=== PATIENT | male | born 1940 | race Caucasian/White ===

== ENCOUNTER → 2017-08-26 | Day surgery (SDC) | payer MEDICARE, BC ==
[~2017-08-26] MED LIST: ASPIR 8181 MG PO; CARAFATE 1 GM TA1 G1 PO; FLOMAX0.4 MG PO; HYDROCODONE-AP1 EAC6 PO; OLANZAPINE20 MG PO; PREVACID30 MG PO
[2017-08-26 10:38] LABS: HEMATOCRIT 35.5 % (42.0-52.0); HEMOGLOBIN 11.6 gm/dL (14.0-18.0); MCH 31.8 pg (26.0-34.0); MCHC 32.8 g/dL (28.0-37.0); MCV 97.1 fL (80.0-100.0); MPV 7.4 fl. (7.2-11.1); RBC 3.66 mil/uL (4.50-6.00); RDW-CV 15.4 % (10.5-14.5); WBC 6.9 thou/uL (4.0-11.0)
[2017-08-26 10:46] LABS: CALCIUM 8.9 mg/dL (8.5-10.1); CREATININE 3.2 mg/dL (0.6-1.3); POTASSIUM 4.4 mmol/L (3.5-5.1)
[2017-08-26 10:51] LABS: TOTAL BILIRUBIN 0.4 mg/dL (<0.1-1.0); TOTAL PROTEIN 7.3 g/dL (6.4-8.2)
--- NOTE | 2017-08-26 11:32 | EKG ---
[place] [address] ELECTROCARDIOGRAM REPORT Name: LISBETH TAYLOR Room: [facility].#: [id number] Admission: 08/26/17 Attend Phys: Adrián Alarcon Discharge: Date of : 36 Report #: [id number] THIS REPORT FOR: //name// [facility] Test Date: 2017-08-26 Test Time: 10:35:35 Pat Name: LISBETH TAYLOR Department: Room: Gender: M Typesetting Machine Tender: : 1940 Requested By: Tomy Hahn Order Number: [id number] [place] MD: Jax Farrell Measurements Intervals [place] Rate: 64 P: 57 RI: 154 QRS: -18 QRSD: 84 T: 50 QT: 430 QTc: 444 Interpretive Statements Sinus rhythm Borderline left axis deviation Borderline low voltage, extremity leads No previous ECG available for comparison Electronically Signed On 08-26-2017 11:32:32 COMMERCIAL MAKEUP ARTIST by Jax Farrell [email or web address] <ELECTRONICALLY SIGNED> By: Jax Farrell MD, [facility] 08/26/17 1132 1035 1035 Jax Farrell MD, FACC /EPI
[2017-08-27 08:09] LABS: HBsAG-EMPLOYEE EXPOSURE Negative (Negative)
--- NOTE | 2017-09-09 14:35 | OP ---
[address] [address] OPERATIVE REPORT Name: LISBETH TAYLOR Room: [facility]#: [id number] Admission: 08/26/17 Attend Phys: Adrián Alarcon Discharge: Date of : 36 Report #: [id number] THIS REPORT FOR: //name// CC: [facility]oyerFormerly [facility] DATE OF SERVICE: 08/26/2017 PREOPERATIVE DIAGNOSIS: End-stage renal disease, requiring hemodialysis. POSTOPERATIVE DIAGNOSIS: End-stage renal disease, requiring hemodialysis. SURGEON: Benton King DO. STRAW HAT PRESSER: None. PROCEDURE: Right upper extremity AV graft placement with a 4-7 mm Acuseal graft. ANESTHESIA: Moderate anesthesia care. ESTIMATED BLOOD LOSS: Minimal. SPECIMEN: None. COMPLICATIONS: None. CONDITION: Stable. DISPOSITION: Home. INDICATIONS FOR THE PROCEDURE AND CONSENT: The patient is a 77-year-old male who has developed end-stage renal disease. He underwent tunneled dialysis catheter placement for hemodialysis. He was noted to have poor nutrition and discussion with his senior tax specialist at that time was to not place a long-term access. The patient has since improved his nutrition and gained some weight and plan is changed to long-term hemodialysis. Again, because of his nutritional status and overall health, an AV graft was requested by the senior tax specialist, a posterior AV fistula. Risks and benefits of this were discussed with the patient including infection, bleeding, need for additional procedures. Additionally, the patient's tunneled dialysis catheter in the last week was reported to be poorly functioning; however, the patient reports that it has been dialyzing well this week [place] [address] OPERATIVE REPORT Name: LISBETH TAYLOR Room: [facility].#: [id number] Admission: 08/26/17 Attend Phys: Adrián Alarcon Discharge: Date of : 36 Report #: [id number] PROCEDURE IN DETAIL: After timeout was performed, the patient was placed in supine position with circumferential sterile prep and drape of the right upper extremity. A longitudinal incision was made overlying the brachial artery and dissection carried down sharply with Bovie electrocautery. Brachial artery was identified and encircled proximally and distally with vessel loops. The axillary vein was then identified in a similar manner by making longitudinal incision high in the arm. Dissection carried down using Bovie electrocautery and Metzenbaum scissors. A large vein was encountered and noted to be adequate outflow for graft and proximal and distal control with vessel loops was performed. There was a large branch that was also controlled with vessel loop. The 4-7 mm tapered Acuseal graft was then selected and soaked with antibiotic saline and then using a curved tunneler, the graft was tunneled between the 2 incisions laterally on the arm. The 4 mm end was then used as an end-to-side anastomosis at the brachial artery. The patient was systemically heparinized with 4000 units of heparin. Brachial artery was then clamped proximally and distally and a longitudinal arteriotomy made with 11 blade scalpel and Marroquin scissors. The graft was then fashioned as a dwyer with approximately 5-6 mm arteriotomy. The 5-0 Prolene was then used to create the end-to-side anastomosis. The clamp was then applied to the very proximal graft and blood flow was restored to the hand. The anastomosis was noted to be hemostatic, except for . A gauze was applied to this area. Attention was turned to the outflow venous anastomosis. The vein was then clamped proximally and distally and the large branch controlled with the vessel loop and longitudinal venotomy was made with 11 blade and Marroquin scissors. The graft was then transected to length and sutured in place in an end-to-side fashion with 5-0 Prolene sutures. A clamp was applied to the graft and blood flow restored to this point of the graft. Blood flow was allowed to backbleed and forward bleed through the vein to fill the venous system and to avoid any air. The graft was then opened and blood flow was restored. This demonstrated excellent thrill and flow through the graft. The radial artery demonstrated a palpable pulse and augmented only slightly with the graft compression. Both wounds were then copiously irrigated with antibiotic saline and both anastomoses noted to be hemostatic; 50 units of protamine was given to reverse heparin that had been given only 28 minutes previously. Both incisions were then closed with 3-0 Vicryl and 4-0 Monocryl suture and Dermabond dressing was applied. The patient tolerated the procedure well. Lap, needle and instrument counts correct. <ELECTRONICALLY SIGNED> By: Benton King DO 09/09/17 1435 1345 1422Benton King DO /nt
== END | disposition home or self-care (01) ==
LOC: M.SUR 10:05
PROVIDERS: Anesthesiology; Surgery
DX: N18.6 End stage renal disease (principal); Z79.2 Long term (current) use of antibiotics

== ENCOUNTER → 2017-10-23 | Day surgery (SDC) | payer MEDICARE, BC ==
[2017-10-23 10:23] LABS: HEMATOCRIT 37.9 % (42.0-52.0); HEMOGLOBIN 12.4 gm/dL (14.0-18.0); MCH 28.3 pg (26.0-34.0); MCHC 32.6 g/dL (28.0-37.0); MCV 86.8 fL (80.0-100.0); MPV 7.4 fl. (7.2-11.1); RBC 4.37 mil/uL (4.50-6.00); RDW-CV 15.4 % (10.5-14.5); WBC 13.9 thou/uL (4.0-11.0)
[2017-10-23 10:31] LABS: CALCIUM 8.3 mg/dL (8.5-10.1); CREATININE 2.1 mg/dL (0.6-1.3)
[2017-10-23 10:41] LABS: ALBUMIN 2.2 g/dL (3.4-5.0); TOTAL BILIRUBIN 0.7 mg/dL (<0.1-1.0); TOTAL PROTEIN 6.8 g/dL (6.4-8.2)
--- NOTE | 2017-10-31 14:18 | OP ---
[address] [address] OPERATIVE REPORT Name: LISBETH TAYLOR Room: [facility]#: [id number] Admission: 10/23/17 Attend Phys: Adrián Alarcon Discharge: Date of : 36 Report #: [id number] THIS REPORT FOR: //name// CC: Mario King DATE OF SERVICE: 10/23/2017 PREOPERATIVE DIAGNOSIS: End-stage renal disease, requiring hemodialysis. POSTOPERATIVE DIAGNOSIS: End-stage renal disease, requiring hemodialysis. SURGEON: Benton King DO COMPOSER TEACHING ARTIST: None. PROCEDURE: Left upper extremity brachiobasilic AV fistula creation. ESTIMATED BLOOD LOSS: Minimal. SPECIMEN: None. COMPLICATIONS: None. CONDITION: Stable. DISPOSITION: Home. INDICATIONS FOR THE PROCEDURE AND CONSENT: The patient is a 77-year-old male with end-stage renal disease requiring hemodialysis. An AV graft was requested by his button clamper due to his overall medical health and did not feel the fistula should be the first choice initially. He underwent a right upper extremity AV graft, which thrombosed and failed. He underwent multiple thrombectomies and revision. This ultimately failed. This was thought most likely to be related to a tunneled dialysis catheter as being partially obstructive of the outflow on the right side as well as having some lability of blood pressure. Recommendation for left upper extremity AV fistula, possible graft was made. Risks and benefits were discussed with the patient including infection, bleeding, need for additional procedures including immobilization, transposition and AV graft revision. The patient wished to proceed, was consented and scheduled. PROCEDURE IN DETAIL: After timeout was performed, the patient was placed in supine position with circumferential sterile prep and drape of left upper extremity. Ultrasound was performed, which demonstrated the brachial artery well. The cephalic vein was not visualized. [place] [address] OPERATIVE REPORT Name: LISBETH TAYLOR Room: [facility]#: [id number] Admission: 10/23/17 Attend Phys: Adrián Alarcon Discharge: Date of : 36 Report #: [id number] basilic vein identified. This appeared to be appropriate choice for new access creation. The area was anesthetized with 1% lidocaine. A small transverse incision was made and dissection carried down sharply with Metzenbaum scissors. The brachial artery was identified proximally and distally and controlled with vessel loop. The basilic vein was identified, ligated distally and transected. A bulldog clamp was applied and the origin regionally heparinized. The patient was systemically heparinized with 5000 units of heparin, allowed to circulate for several minutes. The brachial artery was clamped proximally and distally with small profunda clamps. An 11 blade was used to make a longitudinal arteriotomy. This was perfected with the Marroquin scissors. An end-to-side anastomosis was then created using 6-0 Prolene suture using the vein as a dwyer. Once this was completed, the blood flow was restored retrograde through the brachial artery and into the cephalic vein. The anastomosis was noted to be hemostatic. The brachial artery was then allowed to bleed and blood flow restored to the hand. This demonstrated an excellent thrill within the brachiobasilic AV fistula. Doppler demonstrated triphasic blood flow above and below the anastomosis without significant augmentation with closure of the fistula using a forceps. Being satisfied of the fistula, area was irrigated and closed in layers using 3-0 Vicryl and 4-0 Monocryl suture and Dermabond dressing applied. The patient tolerated the procedure well. All lap, needle and instrument counts were correct. <ELECTRONICALLY SIGNED> By: Benton King DO 10/31/17 1418 1721 1736Benton King DO /nt
== END | disposition home or self-care (01) ==
LOC: M.SUR 07:00
PROVIDERS: Surgery
DX: N18.6 End stage renal disease (principal); Z79.82 Long term (current) use of aspirin; Z79.891 Long term (current) use of opiate analgesic; Z79.899 Other long term (current) drug therapy